=== PATIENT | female | born 1930 | race Caucasian/White ===

== ENCOUNTER → 2016-09-27 | Outpatient (CLI) | payer OTHER ==
[~2016-09-27] MED LIST: ATOR-22 PO; CALC-393 PO; CALCTAB5 PO; DILT-113 PO; FERR1TAB13 PO; LPR25 PO; METO25TA56 PO; TRIA37.5 PO; WARF5TAB7 PO
[2016-09-27 14:23] VITALS: BP 132/68; PULSE 52; TEMP 36.6; O2SAT 95
--- NOTE | 2016-09-27 15:29 | Radiation Oncology Follow-Up ---
Radiation Oncology Follow-Up Date of Visit Sep 27, 2016. 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 Biopsy - 04/11/16 2. Lumpectomy - 06/12/2016 - Dr. Gudino 3. Status post completion of radiation therapy 08/29/2016 received 4005 cGy, hypo-fractionation with 15 fractions Last Edited By: Ana María Euceda on Sep 15:23 (Ana María Euceda PA-C) History of Present Illness Ms. Malhotra is a 86-year-old female who recently presented with an episode of shortness of breath and went to the emergency department at [facility]. She did have a CT thorax on 03/15/2016 which revealed: "IMPRESSION: 1. There is no evidence of pulmonary embolus in the main, lobar, or segmental pulmonary arteries. 2. There are small to moderate pleural effusions with bibasilar consolidation. This could represent atelectasis, aspiration pneumonitis, and/or developing pneumonia. Clinical correlation will be required. 3. The heart is markedly enlarged and there is evidence of pulmonary artery hypertension. Mild diffuse intralobular septal thickening is noted. Correlate clinically for evidence of mild congestive failure. 4. There is a 1.3 cm irregular nodule in the inferior right breast. This was not seen on 2005 and although indeterminant is concerning for neoplasm. Follow-up as an outpatient with mammography is recommended for further assessment. 5. There is nodularity of the hepatic surface contour suggesting early changes of cirrhosis. Clinical correlation will be required. 6. Additional changes as above." The patient subsequently had a diagnostic mammogram completed on 2015 which did reveal: "Oval density with slight lobulation that measures 1.5 cm and is seen 8.2 cm from the nipple at the 5 o'clock position. There is an 8 mm density seen in the inner left breast, central depth, 6.6 cm the nipple at 9 o'clock position. Targeted ultrasound of these 2 areas is recommended." The patient subsequently underwent biopsies on 04/11/2016 and revealed no evidence of disease in the left breast lesion did reveal atypical intraductal role of radiation in the right breast that could reflect ductal hyperplasia, DCIS, LCIS or a papillary lesion. The patient subsequently met with Dr. Pia Gudino who recommended a wide excisional biopsy of the mass which was completed on 06/12/2016. Pathology from the wide local excision revealed solid papillary carcinoma with mucinous features, focally suspicious for microinvasion. The tumor measured 15 mm in the greatest dimension and was grade 2. There was no evidence of any necrosis. The margins were all negative and the closest margin was the anterior margin which was 1.5 mm. The tumor was estrogen receptor positive and progesterone receptor positive. The pathologist did make a comment that states that solid papillary carcinoma behaves like an should be managed like DCIS. The patient was then seen in consultation by Dr. Rosario Wynn for medical oncology who did discuss anti-hormonal therapy. Dr. Wynn did recommend consideration of her Arimidex however the patient would also need to be treated with a bisphosphonate; Dr. Wynn did discuss tamoxifen however she did have concern for development of a clot. We are now seeing the patient in consultation discuss the role of radiation therapy. The patient is healing up well overall from surgery. The patient is interested in considering radiation therapy however her only concern at this point as the travel time and travel distance since she lives in [place], [place]. Options of treatment were reviewed with patient. She underwent a CT simulation. Was felt that she would be best treated with hypo-fractionation therapy without boost. Radiation treatments were completed 08/29/2016. She received 4005 cGy. (Ana María Euceda PA-C) Interim History She has been doing well over the past month. She has noticed no changes to her breasts. She has noted no masses or tenderness and no change in the axilla. She has had minimal skin irritation. Follow-up mammography has been scheduled through Dr. Gudino's office. She did not require anti-estrogen therapy. Mammogram has been scheduled for December. (Ana María Euceda PA-C) Allergies Coded Allergies: No Known Allergies (Verified , 03/15/16) Home Medications Scheduled Calcium (Caltrate), 600 MG PO BID Diltiazem Hcl Ext Rel (Tiazac), 180 MG PO DAILY Ferrous Sulfate ( Ferrous Sulfate), 1 TAB PO twice a week Metoprolol Tartrate (Lopressor), 25 MG PO BID Warfarin Sod (Jultoven), 5 MG PO Saturday Warfarin Sod (Jultoven), 2.5 MG PO every day except Sat Review of Systems Gastrointestinal: Symptoms: WNL Oral: Symptoms: No Problems Respiratory: Symptoms: WNL Urinary: Symptoms: WNL Skin: Symptoms: No Problems Breast: Right Upper Arm Measurement: 29.5 Right Mid Arm Measurement: 23.0 Right Wrist Measurement: 15.0 Left Upper Arm Measurement: 28.5 Left Mid Arm Measurement: 22.5 Left Wrist Measurement: 15.0 Arm Dominence: Left (Ana María Euceda PA-C) Physical Exam Vital Signs Date Time Temp Pulse Resp B/P Pulse Ox O2 Delivery O2 Flow Rate FiO2 09/27/16 14:23 36.6 52 12 132/68 95 Fatigue: None General Appearance: no apparent distress Eyes: normal inspection, EOMI ENT: normal ENT inspection, hearing grossly normal Neck: no adenopathy Respiratory/Chest: lungs clear, no respiratory distress, no accessory muscle use Breast: Breast examination reveals well-healed incision of the right breast. There are no masses or tenderness no axillary adenopathy. She does have some dry desquamation in the inframammary fold. She has hyperpigmentation in the upper inner quadrant. Using the [place] score cosmesis she has a 80 failure outcome. This will improve as the skin changes he'll. The left breast show no masses or tenderness and no axillary adenopathy. Cardiovascular: regular rate, rhythm, no gallop, no murmur Abdomen: normal bowel sounds, soft Extremities: no pedal edema Neurologic/Psychiatric: no motor/sensory deficits, alert, normal mood/affect Skin: warm/dry Lymphatic: no adenopathy (Ana María Euceda PA-C) Assessment & Plan Plan: She does have mammograms scheduled for December. We called suze Thornton to make sure that this was a diagnostic mammogram. This in fact was a unilateral right digital diagnostic mammogram. She'll keep this appointment. Continue follow-up with Dr. Santos. She stated she did not currently have any follow- up appointments with Dr. Wynn or Dr. Gudino. Today we completed a cancer survivorship care plan. A copy the documents given to the patient. We asked her to return to our office in 6 months. She was also seen and examined by Dr. Interiano. She may call if she has any questions or concerns in the interim. (Ana María Euceda PA-C) I agree with note created by Ana María Euceda PA-C. I reviewed the patient's chart and information with her. I have examined and evaluated the patient. I reviewed relevant clinical information and answered the patient's and/or family' s questions. (Veeral. Interiano MD) Total Time In Follow-Up I spent 20 minutes speaking to the patient and performing examination. I spent 20 minutes reviewing information, preparing the survivorship document, and completing this note. (Ana María Euceda PA-C) I spent 10 minutes examining and counseling the patient. (Veeral. 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
== END | disposition home or self-care (01) ==
LOC: C.ONC 14:14
PROVIDERS: ATTEND Physician Assistant Medical
DX: Z08 Encounter for follow-up examination after completed treatment for malignant neoplasm (principal); Z92.3 Personal history of irradiation; Z85.3 Personal history of malignant neoplasm of breast

== ENCOUNTER → 2017-04-03 | Outpatient (CLI) | payer OTHER ==
[~2017-04-03] MED LIST changes: -FERR1TAB13 PO; -LPR25 PO
[2017-04-03 14:01] VITALS: BP 150/66; PULSE 55; TEMP 36.7; O2SAT 94
--- NOTE | 2017-04-03 15:16 | Radiation Oncology Follow-Up ---
Radiation Oncology Follow-Up Date of Visit Apr 03, 2017. 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 Biopsy - 04/11/16 2. Lumpectomy - 06/12/2016 - Dr. Gudino 3. Status post completion of radiation therapy 08/29/2016 received 4005 cGy, hypo-fractionation with 15 fractions Last Edited By: Ana María Euceda on Sep 15:23 History of Present Illness Ms. Malhotra is a 86-year-old female who recently presented with an episode of shortness of breath and went to the emergency department at [facility]. She did have a CT thorax on 03/15/2016 which revealed: "IMPRESSION: 1. There is no evidence of pulmonary embolus in the main, lobar, or segmental pulmonary arteries. 2. There are small to moderate pleural effusions with bibasilar consolidation. This could represent atelectasis, aspiration pneumonitis, and/or developing pneumonia. Clinical correlation will be required. 3. The heart is markedly enlarged and there is evidence of pulmonary artery hypertension. Mild diffuse intralobular septal thickening is noted. Correlate clinically for evidence of mild congestive failure. 4. There is a 1.3 cm irregular nodule in the inferior right breast. This was not seen on 2006 and although indeterminant is concerning for neoplasm. Follow-up as an outpatient with mammography is recommended for further assessment. 5. There is nodularity of the hepatic surface contour suggesting early changes of cirrhosis. Clinical correlation will be required. 6. Additional changes as above." The patient subsequently had a diagnostic mammogram completed on 2015 which did reveal: "Oval density with slight lobulation that measures 1.5 cm and is seen 8.2 cm from the nipple at the 5 o'clock position. There is an 8 mm density seen in the inner left breast, central depth, 6.6 cm the nipple at 9 o'clock position. Targeted ultrasound of these 2 areas is recommended." The patient subsequently underwent biopsies on 04/11/2016 and revealed no evidence of disease in the left breast lesion did reveal atypical intraductal role of radiation in the right breast that could reflect ductal hyperplasia, DCIS, LCIS or a papillary lesion. The patient subsequently met with Dr. Pia Gudino who recommended a wide excisional biopsy of the mass which was completed on 06/12/2016. Pathology from the wide local excision revealed solid papillary carcinoma with mucinous features, focally suspicious for microinvasion. The tumor measured 15 mm in the greatest dimension and was grade 2. There was no evidence of any necrosis. The margins were all negative and the closest margin was the anterior margin which was 1.5 mm. The tumor was estrogen receptor positive and progesterone receptor positive. The pathologist did make a comment that states that solid papillary carcinoma behaves like an should be managed like DCIS. The patient was then seen in consultation by Dr. Roasrio Wynn for medical oncology who did discuss anti-hormonal therapy. Dr. Wynn did recommend consideration of her Arimidex however the patient would also need to be treated with a bisphosphonate; Dr. Wynn did discuss tamoxifen however she did have concern for development of a clot. We are now seeing the patient in consultation discuss the role of radiation therapy. The patient is healing up well overall from surgery. The patient is interested in considering radiation therapy however her only concern at this point as the travel time and travel distance since she lives in [place], [place]. Options of treatment were reviewed with patient. She underwent a CT simulation. Was felt that she would be best treated with hypo-fractionation therapy without boost. Radiation treatments were completed 08/29/2016. She received 4005 cGy. Interim History She has been doing well over the past 6 months in regards to her breast. She has noted no masses or tenderness and no change of the axilla. She's had no swelling of her arm. She is up-to-date on mammography. She unfortunately has developed spinal stenosis. This is greatly affecting her ability to walk. She denies pain. This only affects her ability to walk. She now walks with a walker. She was referred to pain management and received injection to her back. She stated that this does not help her current condition. She did have an MRI showing advanced degenerative disc and bony changes throughout the lumbar spine with scoliosis. At L3 to L4 there is severe foraminal narrowing. She declined antiestrogen therapy with tamoxifen. She has a history of pulmonary embolism and because of the risk factors in developing a clot, her decision was to not take antiestrogen therapy. Allergies Coded Allergies: No Known Allergies (Verified , 03/26/17) Home Medications Scheduled Atorvastatin (Lipitor), 20 MG PO QAM Calcium (Caltrate), 600 MG PO BID Diltiazem Hcl Ext Rel (Tiazac), 180 MG PO QAM Metoprolol Tartrate (Lopressor) (Lopressor), 25 MG PO BID Triamterene/Hctz (Dyazide 37.5MG/25MG), 1 TAB PO QAM Warfarin Sod (Jultoven), 5 MG PO Saturday Warfarin Sod (Jultoven), 2.5 MG PO every day except Sat Review of Systems Gastrointestinal: Symptoms: WNL Oral: Symptoms: No Problems Respiratory: Symptoms: WNL Urinary: Symptoms: Nocturia Comments: nocturia times 2 Skin: Symptoms: No Problems Breast: Right Upper Arm Measurement: 27.4 Right Mid Arm Measurement: 23.0 Right Wrist Measurement: 16.0 Left Upper Arm Measurement: 28.0 Left Mid Arm Measurement: 23.0 Left Wrist Measurement: 15.0 Arm Dominence: Left Patient Cosmetic Evaluation: Good Staff Cosmetic Evalaluation: Excellent Physical Exam Vital Signs Date Time Temp Pulse Resp B/P (MAP) Pulse Ox O2 Delivery O2 Flow Rate FiO2 04/03/17 14:01 36.7 55 16 150/66 94 Pain: Side: Bilateral Patient Pain Scale: 0 - 10 Initial Pain Intensity: 0.0 Fatigue: None General Appearance: no apparent distress Eyes: normal inspection, EOMI ENT: normal ENT inspection, hearing grossly normal Neck: no adenopathy, thyroid normal Respiratory/Chest: lungs clear, no respiratory distress, no accessory muscle use Breast: Breast examination reveals well-healed incision of the right breast. There are no masses or tenderness and no axillary adenopathy. She has no skin retractions or nipple changes. Small area of dry skin in the upper inner portion of the chest. Using the [place] score cosmesis she has a good outcome. The left breast showed no masses or tenderness and no axillary adenopathy. Cardiovascular: regular rate, rhythm, no gallop, no murmur Abdomen: non tender, soft Extremities: no pedal edema, + pertinent finding (antalgic gait. Now walks with a walker.) Neurologic/Psychiatric: no motor/sensory deficits, alert, normal mood/affect Skin: warm/dry Additional Studies 12/27/2016 2:10 PM - Interface, Rad In Narrative Comparison is made to images from 06/12/2016 and images from 03/29/2016. Right Breast Findings:6 month Follow up There are scattered fibroglandular densities (25% - 50% fibroglandular). Interval lumpectomy and XRT for breast carcinoma. Expected post treatment changes present. There are no suspicious calcifications, masses, or other abnormalities. Authenticated By Authenticating Date Authenticating Time Reading Providers(s) LORI NORMAN MD 12-27-2016 14:10 LORI NORMAN MD IMPRESSION: RIGHT BREAST: Findings are probably benign. A short interval follow-up is recommended in 6 months. Screening mammogram of left due at that time. OVERALL ASSESSMENT - CATEGORY 3 - PROBABLY BENIGN END OF IMPRESSION Note: Approximately 10% of breast cancers are not detected on mammography. A negative mammographic report should not delay biopsy if a clinically suggestive mass is present. This mammogram has been analyzed with the computer aided detection system. Tomosynthesis was done. This notice contains the results of your recent mammogram, including information about breast density. If your mammogram shows that your breast tissue is dense, you should know that dense breast tissue is a common finding and is not abnormal. Statistics show many women could have dense or highly dense breasts. Dense breast tissue can make it harder to find cancer on a mammogram and may be associated with an increased risk of cancer. This information about the result of your mammogram is given to you to raise your awareness and to inform your conversations with your physician. Together, you can decide which screening options are right for you, based on your mammogram results, individual risk factors or physical examination. A report of your results was sent to your physician. Your mammographic breast density on today's study is described above. There are four categories of breast density on mammography. Fatty breasts and those with scattered fibroglandular tissue are not considered dense. Heterogeneously dense or extremely dense tissue is considered "dense". Please understand that assessment of breast density may vary from year to year Assessment & Plan Plan: She was seen and examined by Dr. Interiano. Continue with scheduled mammography. She has a mammogram scheduled for 04/12/2017. Continue follow-up with Dr. Wynn and Dr. Gudino as well as her primary care physician. We asked her to return to our office in 1 year. Assessment & Plan (Attending) ADDENDUM: I agree with note created by Ana María Euceda PA-C. I reviewed the patient's chart and information with her. I have examined and evaluated the patient. I reviewed relevant clinical information and answered the patient's and /or family's questions. TRAFFIC DIRECTOR Total Time In Follow-Up I spent 20 minutes speaking to the patient and performing examination. I spent 15 minutes reviewing information and completing this note. AK Total Time (Attending) In Follow-Up I spent 15 minutes examining and counseling the patient. 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
== END | disposition home or self-care (01) ==
LOC: C.ONC 13:48
PROVIDERS: ATTEND Physician Assistant Medical
DX: Z08 Encounter for follow-up examination after completed treatment for malignant neoplasm (principal); Z92.3 Personal history of irradiation; Z85.3 Personal history of malignant neoplasm of breast

== ENCOUNTER → 2017-04-23 | Day surgery (SDC) | payer OTHER ==
[2017-03-26 08:01] VITALS: Ht 157.5 cm; Wt 68.2 kg
[~2017-04-23] VITALS: Ht 157.5 cm; Wt 68.2 kg
[~2017-04-23] MED LIST changes: +500ML BSS 0.3ML EPI 1:1000PF IRRIG ONE; +ACETAMINOPHEN 325 MG TAB PO PRN; +AMVISC PLUS 0.8ML SYRINGE INT OCU ONE; +ATROPINE SULFATE 0.1 MG/ML 5ML SYR IV PRN; +BSS FLUSH ONE; +EpHEDrine SULFATE INJ 50 MG/ML AMP IV PRN; +EpINEphrine INJ 1MG/ML AMP 1 MG/ML AMP ONE; +LACTATED RINGER'S 1000ML 500 ML IV SCH; +LIDOCAINE 3.5% OPH GEL PER APPLICATION CHARGE ONE; +LIDOCAINE HCL 1% MPF 2 ML VIAL ONE; +MIDAZOLAM HCL 1 MG/ML 2ML VIAL ONE; +OCUCOAT 1 ML SOLN IO ONE; +POVIDONE-IODINE OP SOLN 30 ML BTL ONE; +PROPARACAINE 0.5% OP SOLN PER DROP CHARGE OPL SCH; +TOBRAMYCIN/DEXAMETHASONE OPH OINT PER APPLN CHARGE ONE
[2017-04-23] MEDS: PHENYLEPHRINE HCL 2.5% OP SOLN PER DROP CHARGE OPL SCH ×2 (09:34→09:44)
[2017-04-23] MEDS: TROPICAMIDE 1% OP SOLN PER DROP CHARGE OPL SCH ×2 (09:35→09:46)
[2017-04-23] MEDS: CYCLOPENTOLATE HCL 1% OP SOLN PER DROP CHARGE OPL SCH ×2 (09:36→09:47)
[2017-04-23] MEDS: KETOROLAC 0.5% OP SOLN PER DROP CHARGE OPL SCH ×2 (09:37→09:49)
[2017-04-23] MEDS: GATIFLOXACIN OP SOLN PER DROP CHARGE OPL SCH ×2 (09:40→09:51)
--- NOTE | 2017-04-23 09:47 | History & Physical Bridge - SC ---
H&P Re-Evaluation Bridge Note: I have examined the patient, reviewed the History & Physical and in the interval since the performance of the History & Physical I have noted the following changes of clinical significance: Diagnosis: Right Cataract Procedure: Right Cataract Removal with Lens Implant No changes noted
--- NOTE | 2017-04-23 10:19 | Discharge Instructions-SurgCtr ---
Discharge Instructions Date of Service Apr 23, 2017. Visit Reason for Visit: Cataract Left Eye Discharge Discharge Diagnosis / Problem: cataract Discharge Goals Goal(s): Improve function Activity Recommendations Activity Limitations: per Instructions/Follow-up section Anesthesia . Post Anesthesia Instructions: If you have had General Anesthesia or IV Sedation: * Do not drive today. * Resume driving when surgeon permits. * Do not make important decisions or sign legal documents today. * Call surgeon for: 1. Temperature elevations greater than 101 degrees F. 2. Uncontrollable pain. 3. Excessive bleeding. 4. Persistent nausea and vomiting. 5. Medication intolerance (nausea, vomiting or rash). * For nausea and vomiting use only clear liquids such as: tea, soda, bouillon until nausea subsides, then gradually increase diet as tolerated. * If you have any concerns or questions, call your surgeon's office. If physician is unavailable and it is an emergency, call 911 or go to the nearest emergency room. . Diet Recommendations Home Diet: resume previous diet Procedures Procedures Performed: Left Eye Cataract Phacoemulsification With Intraocular Lens Implant Pending Studies Studies pending at discharge: no Medical Emergencies . Who to Call and When: Medical Emergencies: If at any time you feel your situation is an emergency, please call 911 immediately. . Non-Emergent Contact Non-Emergency issues call your: Primer Inspector . . "Provider Documentation" section prepared by Jamshid Resendiz. .
[2017-04-23 10:20] VITALS: TEMP 36.7
--- NOTE | 2017-04-23 10:20 | [facility] Operative Report ---
Operative Report Date of Service Apr 23, 2017. Operative Report 1. PREOPERATIVE DIAGNOSIS: Cataract of the left eye. 2. POSTOPERATIVE DIAGNOSIS: Same. 3. PROCEDURE: Phacoemulsification with intraocular lens implantation of the left eye. SURGEON: Dr. Jamshid Resendiz. ANESTHESIA: Topical Lidocaine gel, 1% Non- Preserved intracameral Lidocaine, and monitored intravenous sedation. INDICATIONS FOR THE PROCEDURE: The patient is a 86 - year-old female with a history of cataract of the left eye causing significant visual impairment. The details of the proposed procedure were explained to the patient who asked appropriate questions and following discussion of all risks, benefits and alternatives agreed to have the procedure done. 4. OPERATION AND FINDINGS: DESCRIPTION OF PROCEDURE: After informed consent was obtained, the patient was brought to the Operating Room at the [facility]. The patient was placed in a supine position and then the left eye was prepped and draped in the usual sterile fashion for intraocular surgery. A drop of topical Lidocaine gel was placed in the operative eye. A wire lid speculum was then placed in the fornices. A corneal paracentesis was then created temporally. The Non-Preserved Lidocaine was then instilled into the anterior chamber. The anterior chamber was then pressurized with viscoelastic. A 2.0 mm clear corneal incision was then created temporally. A cystotome was inserted into the anterior chamber and used to create a tear in the anterior lens capsule. This capsular tear was then used to create a small flap and the flap was dragged in a counterclockwise direction in order to create a continuous curvilinear capsulorrhexis. Hydrodissection was accomplished with balanced salt solution. Phacoemulsification of the lens nucleus was then performed in a standard [id number] technique. The phaco time was 28 seconds with an average power of 16 %. The remaining cortical material was removed using irrigation aspiration. The capsular bag was then filled with viscoelastic. A [employer]ch [employer] Lomb MI60L +19.5 diopters lens was then loaded into the injector and injected into the capsular bag. The remaining viscoelastic was removed with the irrigation aspiration handpiece. The wound was hydrated and then checked and found to be watertight. The intraocular pressure was checked and found to be adequate. The wire lid speculum was removed and the patient's face was cleaned and dried. TobraDex ointment was placed in the inferior fornix. The patient was discharged to the Recovery Room having tolerated the procedure well. There were no complications. The patient will be seen tomorrow in the office for follow-up. I attest to the content of the Intraoperative Record and any orders documented therein. Any exceptions are noted below.
--- NOTE | 2017-04-23 10:31 | Anesthesia Progress Nt - [facility] ---
Anesthesia Post Op Note Date & Time Apr 23, 2017 at 10:31 Vital Signs Pain Intensity: 0 Vital Signs Past 12 Hours Date Time Temp Pulse Resp B/P (MAP) Pulse Ox O2 Delivery O2 Flow Rate FiO2 04/23/17 10:20 36.7 63 16 146/74 (98) 95 Room Air 04/23/17 09:08 36.7 62 18 171/72 (105) 94 Room Air Notes Mental Status: alert / awake / arousable, participated in evaluation Pt Amnestic to Procedure: Yes Nausea / Vomiting: adequately controlled Pain: adequately controlled Airway Patency, RR, SpO2: stable & adequate BP & HR: stable & adequate Hydration State: stable & adequate Anesthetic Complications: no major complications apparent
[2017-04-23 10:48] VITALS: BP 166/68; PULSE 51; O2SAT 95
== END | disposition home or self-care (01) ==
LOC: X.SURG 08:49
PROVIDERS: ATTEND Ophthalmology
DX: H26.9 Unspecified cataract (principal); I10 Essential (primary) hypertension; Z86.711 Personal history of pulmonary embolism; Z90.710 Acquired absence of both cervix and uterus; Z90.89 Acquired absence of other organs; Z85.3 Personal history of malignant neoplasm of breast; E78.5 Hyperlipidemia, unspecified; Z79.01 Long term (current) use of anticoagulants; D64.9 Anemia, unspecified

== ENCOUNTER → 2017-05-14 | Day surgery (SDC) | payer OTHER ==
[2017-05-02 15:28] VITALS: Ht 157.5 cm; Wt 68.2 kg
[~2017-05-14] VITALS: Ht 157.5 cm; Wt 68.2 kg
[~2017-05-14] MED LIST changes: -CALCTAB5 PO; -PROPARACAINE 0.5% OP SOLN PER DROP CHARGE OPL SCH; +PROPARACAINE 0.5% OP SOLN PER DROP CHARGE OPR SCH
--- NOTE | 2017-05-14 09:16 | History & Physical Bridge - [place] ---
H&P Re-Evaluation Bridge Note: I have examined the patient, reviewed the History & Physical and in the interval since the performance of the History & Physical I have noted the following changes of clinical significance: No changes noted
[2017-05-14] MEDS: PHENYLEPHRINE HCL 2.5% OP SOLN PER DROP CHARGE OPR SCH ×2 (09:23→09:34)
[2017-05-14] MEDS: TROPICAMIDE 1% OP SOLN PER DROP CHARGE OPR SCH ×2 (09:24→09:35)
[2017-05-14] MEDS: CYCLOPENTOLATE HCL 1% OP SOLN PER DROP CHARGE OPR SCH ×2 (09:25→09:36)
[2017-05-14] MEDS: KETOROLAC 0.5% OP SOLN PER DROP CHARGE OPR SCH ×2 (09:26→09:37)
[2017-05-14] MEDS: GATIFLOXACIN OP SOLN PER DROP CHARGE OPR SCH ×2 (09:28→09:40)
--- NOTE | 2017-05-14 10:23 | Discharge Instructions-SurgCtr ---
Discharge Instructions Date of Service May 14, 2017. Visit Reason for Visit: Right Cataract Discharge Discharge Diagnosis / Problem: cataract Discharge Goals Goal(s): Improve function Activity Recommendations Activity Limitations: per Instructions/Follow-up section Anesthesia . Post Anesthesia Instructions: If you have had General Anesthesia or IV Sedation: * Do not drive today. * Resume driving when surgeon permits. * Do not make important decisions or sign legal documents today. * Call surgeon for: 1. Temperature elevations greater than 101 degrees F. 2. Uncontrollable pain. 3. Excessive bleeding. 4. Persistent nausea and vomiting. 5. Medication intolerance (nausea, vomiting or rash). * For nausea and vomiting use only clear liquids such as: tea, soda, bouillon until nausea subsides, then gradually increase diet as tolerated. * If you have any concerns or questions, call your surgeon's office. If physician is unavailable and it is an emergency, call 911 or go to the nearest emergency room. . Diet Recommendations Home Diet: resume previous diet Procedures Procedures Performed: Right Cataract Phacoemulsification With Intraocular Lens Implant Pending Studies Studies pending at discharge: no Medical Emergencies . Who to Call and When: Medical Emergencies: If at any time you feel your situation is an emergency, please call 911 immediately. . Non-Emergent Contact Non-Emergency issues call your: Independent Consultant . . "Provider Documentation" section prepared by Jamshid Resendiz. .
--- NOTE | 2017-05-14 10:24 | [facility] Operative Report ---
Operative Report Date of Service May 14, 2017. Operative Report 1. PREOPERATIVE DIAGNOSIS: Cataract of the right eye. 2. POSTOPERATIVE DIAGNOSIS: Same. 3. PROCEDURE: Phacoemulsification with intraocular lens implantation of the right eye. SURGEON: Dr. Jamshid Resendiz. ANESTHESIA: Topical Lidocaine gel, 1% Non- Preserved intracameral Lidocaine, and monitored intravenous sedation. INDICATIONS FOR THE PROCEDURE: The patient is a 86 - year-old female with a history of cataract of the right eye causing significant visual impairment. The details of the proposed procedure were explained to the patient who asked appropriate questions and following discussion of all risks, benefits and alternatives agreed to have the procedure done. 4. OPERATION AND FINDINGS: DESCRIPTION OF PROCEDURE: After informed consent was obtained, the patient was brought to the Operating Room at the [facility]. The patient was placed in a supine position and then the right eye was prepped and draped in the usual sterile fashion for intraocular surgery. A drop of topical Lidocaine gel was placed in the operative eye. A wire lid speculum was then placed in the fornices. A corneal paracentesis was then created temporally. The Non-Preserved Lidocaine was then instilled into the anterior chamber. The anterior chamber was then pressurized with viscoelastic. A 2.0 mm clear corneal incision was then created temporally. A cystotome was inserted into the anterior chamber and used to create a tear in the anterior lens capsule. This capsular tear was then used to create a small flap and the flap was dragged in a counterclockwise direction in order to create a continuous curvilinear capsulorrhexis. Hydrodissection was accomplished with balanced salt solution. Phacoemulsification of the lens nucleus was then performed in a standard [id number] technique. The phaco time was 27 seconds with an average power of 12 %. The remaining cortical material was removed using irrigation aspiration. The capsular bag was then filled with viscoelastic. A [employer] MI60L +19.5 diopters lens was then loaded into the injector and injected into the capsular bag. The remaining viscoelastic was removed with the irrigation aspiration handpiece. The wound was hydrated and then checked and found to be watertight. The intraocular pressure was checked and found to be adequate. The wire lid speculum was removed and the patient's face was cleaned and dried. TobraDex ointment was placed in the inferior fornix. The patient was discharged to the Recovery Room having tolerated the procedure well. There were no complications. The patient will be seen tomorrow in the office for follow-up. I attest to the content of the Intraoperative Record and any orders documented therein. Any exceptions are noted below.
[2017-05-14 10:26] VITALS: TEMP 36.4
[2017-05-14 10:49] VITALS: BP 152/82; PULSE 58; O2SAT 96
--- NOTE | 2017-05-14 11:04 | Anesthesiology Progress Note ---
Anesthesia Post Op Note Date & Time May 14, 2017 at 11:03 Vital Signs Pain Intensity: 0 Vital Signs Past 12 Hours Date Time Temp Pulse Resp B/P (MAP) Pulse Ox O2 Delivery O2 Flow Rate FiO2 05/14/17 10:49 58 16 152/82 (105) 96 Room Air 05/14/17 10:26 36.4 55 16 137/81 (99) 95 Room Air 05/14/17 08:49 36.4 63 16 161/90 (113) 95 Room Air Notes Mental Status: alert / awake / arousable, participated in evaluation Nausea / Vomiting: adequately controlled Pain: adequately controlled Airway Patency, RR, SpO2: stable & adequate BP & HR: stable & adequate Hydration State: stable & adequate Anesthetic Complications: no major complications apparent
== END | disposition home or self-care (01) ==
LOC: X.SURG 08:40
PROVIDERS: ATTEND Ophthalmology
DX: H26.9 Unspecified cataract (principal); E78.5 Hyperlipidemia, unspecified; I10 Essential (primary) hypertension; Z85.3 Personal history of malignant neoplasm of breast; Z86.711 Personal history of pulmonary embolism; Z98.42 Cataract extraction status, left eye; Z90.89 Acquired absence of other organs; Z79.899 Other long term (current) drug therapy; Z68.28 Body mass index [BMI] 28.0-28.9, adult